=== PATIENT | male | born 1955 | race Caucasian/White ===

== ENCOUNTER → 2016-07-31 | Day surgery (SDC) | payer OTHER ==
[~2016-07-31] MED LIST: Lactated Ringers 1,000 ML IV SCH; Propofol 200 MG/20 ML SDV IV ONE
[2016-07-31 10:35] VITALS: BP 124/74
--- NOTE | 2016-08-01 08:07 | OR ---
DATE OF OPERATION: 07/31/2016 PREOPERATIVE DIAGNOSIS: HISTORY OF REFLUX DISEASE AND COLON SCREENING. POSTOPERATIVE DIAGNOSIS: POSSIBLE DELAYED GASTRIC EMPTYING WITH GASTROESOPHAGEAL REFLUX DISEASE AND POLYP OF THE RECTUM. SURGEON: Jorje Kitchen MD PROCEDURE: UPPER GI ENDOSCOPY WITH CLOTEST AND COLONOSCOPY WITH POLYPECTOMY USING SNARE TECHNIQUE. ANESTHESIA: IV sedation by MOBILE APPLICATION ARCHITECT. DESCRIPTION OF PROCEDURE: After the patient's oropharyngeal mucosa was anesthetized with help of Cetacaine spray, the patient was made to swallow the gastroscope down. The patient has quite a bit of reflux into his esophagus from the stomach. EG junction was at 40 cm level. I did not see any injury of the large hiatal hernia. Body of the stomach does show evidence of retained gastric fluid and retained food, this was suctioned out. The patient might have delayed gastric emptying, although pylorus was transposed quite easily into the 1st and 2nd part of duodenum. They were free of any ulcer disease or any tumor mass. I did not see any obstruction. Gastroscope was retroverted and fundus was examined. It was also free of any pathology. A biopsy for CLOtest was taken. Multiple photographs were taken, and gastroscope was gradually withdrawn. We will try to do a nuclear medicine scan for delayed gastric emptying on the patient. Then, the patient was turned over on left lateral position. Colonoscope was introduced into the anal canal from where it was maneuvered into rectum, then into sigmoid colon, gradually up the descending colon across the splenic flexure into transverse colon, across the hepatic flexure into ascending colon down to cecum. Multiple photographs were taken and colonoscope was gradually withdrawn. There was no evidence of any tumor or mass. There was a tiny polyp present within the rectum at around 10 cm level. Using snare technique, polypectomy was done and polyp was removed using suction technique. The patient also has hemorrhoids. Other than this, no other pathology was seen. The patient tolerated the procedure well and left the operating room in satisfactory condition. QUINN/ZAIRAL /[id number]
== END ==
LOC: CC.SDS 07:52
PROVIDERS: ATTEND Surgery
DX: Z12.11 Encounter for screening for malignant neoplasm of colon (principal); D12.8 Benign neoplasm of rectum; K64.8 Other hemorrhoids; I25.10 Atherosclerotic heart disease of native coronary artery without angina pectoris; K21.9 Gastro-esophageal reflux disease without esophagitis; E78.5 Hyperlipidemia, unspecified; I10 Essential (primary) hypertension; E55.9 Vitamin D deficiency, unspecified; Z79.82 Long term (current) use of aspirin; Z79.899 Other long term (current) drug therapy; N40.0 Benign prostatic hyperplasia without lower urinary tract symptoms
CPT/HCPCS: 43239; 45385; 87081; J2704; J7120

== ENCOUNTER 2023-04-27 07:10 | Day surgery (SDC) | payer MEDICARE, OTHER ==
[2023-04-27] MEDS: Lactated Ringers 1,000 ML IV SCH (07:42)
[2023-04-27] MEDS ORDERED: fentaNYL 50 MCG/ML SDV ONE (07:55)
[2023-04-27] MEDS ORDERED: Ketamine 200 MG/20 ML MDV ONE (07:55)
[2023-04-27] MEDS ORDERED: Propofol 200 MG/20 ML SDV ONE ×2 (07:55)
[2023-04-27 12:41] VITALS: BP 125/69; PULSE 59
== END 2023-04-27 09:28 | disposition home or self-care (01) ==
LOC: CC.SDS 07:10
PROVIDERS: ATTEND Family Medicine
DX: K63.5 Polyp of colon (principal); K57.30 Diverticulosis of large intestine without perforation or abscess without bleeding; I10 Essential (primary) hypertension; E11.9 Type 2 diabetes mellitus without complications; E78.00 Pure hypercholesterolemia, unspecified; K21.9 Gastro-esophageal reflux disease without esophagitis; G47.30 Sleep apnea, unspecified; I25.10 Atherosclerotic heart disease of native coronary artery without angina pectoris; N40.0 Benign prostatic hyperplasia without lower urinary tract symptoms; G89.29 Other chronic pain; Z86.010 Personal history of colon polyps; Z79.899 Other long term (current) drug therapy; Z79.82 Long term (current) use of aspirin; Z79.84 Long term (current) use of oral hypoglycemic drugs; Z79.85 Long-term (current) use of injectable non-insulin antidiabetic drugs
CPT/HCPCS: 00811; 88305; J2704; J3010; J3490; J7120